=== PATIENT | female | born 1950 | race Caucasian/White ===

== ENCOUNTER 2024-08-09 21:10 | Inpatient (IN) | payer MEDICARE ==
[2024-08-09 21:49] VITALS: BMI 21.2
[2024-08-09] MEDS ORDERED: Acetaminophen/Codeine 30-300mg Tablet PO PRN (22:23)
[2024-08-09] MEDS ORDERED: Acetaminophen 325 MG TAB PO PRN (22:23)
[2024-08-09] MEDS: OLANZapine ODT 5 MG TAB PO SCH (23:23)
[2024-08-09] MEDS: Pantoprazole 40 MG DR.TAB PO SCH (23:23)
[2024-08-09] MEDS: Primidone 50 MG TAB PO SCH ×2 (23:24→23:31)
[2024-08-09] MEDS: busPIRone HCl 5 MG TAB PO SCH (23:24)
[2024-08-09] MEDS: Gabapentin 300 MG CAP PO SCH (23:24)
[2024-08-09] MEDS: traMADol HCl 50 MG TAB PO PRN (23:28)
[2024-08-10] MEDS ORDERED: Acetaminophen 325 MG TAB PO PRN (06:55)
[2024-08-10] MEDS ORDERED: Acetaminophen/Codeine 30-300mg Tablet PO PRN (06:55)
[2024-08-10] MEDS ORDERED: traMADol HCl 50 MG TAB PO PRN (06:55)
[2024-08-10] MEDS ORDERED: Diphenoxylate HCl/Atropine Tablet PO PRN ×2 (06:55→07:05)
[2024-08-10] MEDS: LAMOTRIGINE 300 MG PO SCH ×3 (09:00→20:55)
[2024-08-10] MEDS ORDERED: LAMOTRIGINE 300 MG PO SCH (09:00)
[2024-08-10] MEDS: Vibegron [Gemtesa] 75 MG Tablet PO SCH (09:00)
[2024-08-10] MEDS ORDERED: BUSPIRONE HCL 10 MG PO SCH (09:00)
[2024-08-10] MEDS ORDERED: Apixaban 5 MG TAB PO SCH (09:00)
[2024-08-10] MEDS ORDERED: LEVOMILNACIPRAN HCL 80 MG PO SCH (09:00)
[2024-08-10] MEDS ORDERED: VIBEGRON 75 MG PO SCH (09:00)
[2024-08-10] MEDS ORDERED: DEUTETRABENAZINE 24 MG PO SCH (09:00)
[2024-08-10] MEDS: LEVOMILNACIPRAN HCL 80 MG PO SCH (09:00)
[2024-08-10] MEDS ORDERED: Lidocaine 4% Patch TD SCH (09:00)
[2024-08-10] MEDS ORDERED: Non-Formulary Item 1 EACH (Omeprazole [Omeprazole] 20 MG Tablet.Dr) PO SCH (09:00)
[2024-08-10] MEDS: Lidocaine 4% Patch TD SCH (10:37)
[2024-08-10] MEDS: Apixaban 5 MG TAB PO SCH (10:37)
[2024-08-10] MEDS: Pantoprazole 40 MG DR.TAB PO SCH ×2 (10:38→10:40)
[2024-08-10] MEDS: Gabapentin 300 MG CAP PO SCH ×2 (10:38→10:39)
[2024-08-10] MEDS: Naproxen 500 MG TAB PO SCH (10:38)
[2024-08-10] MEDS: busPIRone HCl 5 MG TAB PO SCH ×2 (10:38→10:39)
[2024-08-10] MEDS: Metoprolol Succinate XL 25 MG ER.TAB PO SCH (10:51)
[2024-08-10] MEDS: HYDROcodone/Acetaminophen 5/325 mg Tablet PO PRN (12:27)
[2024-08-10] MEDS: LAMOTRIGINE 25 MG PO SCH ×2 (18:00→20:55)
[2024-08-10] MEDS: LAMOTRIGINE 50 MG PO SCH ×2 (18:00→20:55)
[2024-08-10] MEDS: DEUTETRABENAZINE 24 MG PO SCH ×2 (18:16)
[2024-08-10] MEDS: Primidone 50 MG TAB PO SCH (20:50)
[2024-08-10] MEDS: OLANZapine ODT 5 MG TAB PO SCH (20:50)
[2024-08-10] MEDS: Famotidine 20 MG TAB PO SCH (20:51)
[2024-08-10] MEDS: Senokot S 8.6-50 MG TAB PO SCH (20:55)
[2024-08-10] MEDS: Transdermal Patch Removal TOP SCH (20:56)
[2024-08-10] MEDS ORDERED: Non-Formulary Item 1 EACH (Famotidine [Famotidine] 40 MG Tablet) PO SCH (21:00)
[2024-08-10] MEDS ORDERED: Primidone 50 MG TAB PO SCH ×2 (21:00)
[2024-08-10] MEDS ORDERED: OLANZapine ODT 5 MG TAB PO SCH (21:00)
[2024-08-10] MEDS ORDERED: OLANZAPINE 5 MG PO SCH (21:00)
[2024-08-11] MEDS: Primidone 50 MG TAB PO SCH (07:38)
[2024-08-11] MEDS: LEVOMILNACIPRAN HCL 40 MG PO SCH (08:56)
[2024-08-11] MEDS: LEVOMILNACIPRAN HCL 80 MG PO SCH (08:56)
[2024-08-11] MEDS ORDERED: LAMOTRIGINE 50 MG PO SCH (09:00)
[2024-08-11] MEDS ORDERED: LAMOTRIGINE 300 MG PO SCH (09:00)
[2024-08-12 12:59] VITALS: BMI 21.2
[2024-08-13] MEDS: DEUTETRABENAZINE 24 MG PO SCH (18:00)
[2024-08-20 05:17] LABS: #Basophils 0.1 thou/uL (0.0-0.2); #Eosinophils 0.3 thou/uL (0.0-0.7); #Lymphocytes 2.4 thou/uL (1.20-3.40); #Monocytes 0.6 thou/uL (0.11-0.59); #Neutrophils 2.7 thou/uL (1.40-6.50); %Basophils 1.5 % (0.0-1.0); %Eosinophils 4.7 % (0.0-10.0); %Lymphocytes 39.6 % (21.0-51.0); %Monocytes 9.8 % (0.0-10.0); %Neutrophils 44.4 % (42.0-75.0); Hematocrit 34.1 % (36.0-47.0); Hemoglobin 11.2 g/dL (12.0-16.0); Mean Corpuscular HGB CONC 32.8 g/dL (32.0-36.0); Mean Corpuscular Hemoglobin 30.5 pg (27.0-31.0); Mean Corpuscular Volume 92.9 fl (78.0-98.0); Mean Platelet Volume 5.4 fL (7.4-10.4); Platelet Count 254 10x3/uL (130-400); RBC Distribution Width 12.1 % (11.5-14.5); Red Blood Cell (RBC) Count 3.67 mill/uL (4.20-5.40); White Blood Cell (WBC) Count 6.1 10x3/uL (4.8-10.8)
[2024-08-20 05:21] LABS: Anion Gap 13 mmol/L (10-20); BUN (Urea Nitrogen) 23 mg/dL (9.8-20.1); Calc. Creatinine Clearance 60 mL/min (70-130); Calcium 8.9 mg/dL (7.8-10.44); Carbon Dioxide 25 mmol/L (23-31); Chloride 107 mmol/L (98-107); Estimated GFR 90; Glucose 89 mg/dL (83-110); Potassium 4.3 mmol/L (3.5-5.1); Sodium 141 mmol/L (136-145)
[2024-08-27] MEDS: Lidocaine 4% Patch TD SCH (09:52)
[2024-08-27] MEDS: Transdermal Patch Removal TOP SCH (21:10)
[2024-08-29 05:14] LABS: Hematocrit 32.6 % (36.0-47.0); Hemoglobin 11.1 g/dL (12.0-16.0); Platelet Count 220 10x3/uL (130-400)
[2024-08-29] MEDS: HYDROcodone/Acetaminophen 5/325 mg Tablet PO PRN (22:17)
[2024-08-30] MEDS: Primidone 50 MG TAB PO SCH (20:35)
[2024-09-01 17:37] LABS: ALT (SGPT) 23 U/L (8-55); AST (SGOT) 15 U/L (5-34); Albumin 3.3 g/dL (3.4-4.8); Alkaline Phosphatase 123 U/L (40-110); Anion Gap 13 mmol/L (10-20); BUN (Urea Nitrogen) 19 mg/dL (9.8-20.1); Bilirubin, Total 0.2 mg/dL (0.2-1.2); Calc. Creatinine Clearance 61 mL/min (70-130); Calcium 8.6 mg/dL (7.8-10.44); Carbon Dioxide 24 mmol/L (23-31); Chloride 106 mmol/L (98-107); Estimated GFR 91; Globulin 2.2 g/dL (2.4-3.5); Glucose 88 mg/dL (83-110); Protein, Total 5.5 g/dL (5.8-8.1); Sodium 139 mmol/L (136-145)
[2024-09-03] MEDS: Acetaminophen 325 MG TAB PO PRN (22:14)
[2024-09-04] MEDS: HYDROcodone/Acetaminophen 5/325 mg Tablet PO SCH (09:50)
[2024-09-06 06:24] VITALS: BP 153/89; TEMP 98.1
== END 2024-09-06 16:45 | disposition home health service (06) | DRG 946 ==
LOC: UNDOADMIN 21:10 → BURMED 21:10
PROVIDERS: ADMIT Family Medicine; ATTEND Family Medicine
PROC: F07Z9ZZ Gait Training/Functional Ambulation Treatment (ICD-10-PCS; principal; 2024-08-10)
DX: R53.81 Other malaise (principal); S32.10XD Unspecified fracture of sacrum, subsequent encounter for fracture with routine healing; G40.909 Epilepsy, unspecified, not intractable, without status epilepticus; I10 Essential (primary) hypertension; K21.9 Gastro-esophageal reflux disease without esophagitis; F32.A Depression, unspecified; R26.89 Other abnormalities of gait and mobility; W19.XXXA Unspecified fall, initial encounter; Z79.01 Long term (current) use of anticoagulants
CPT/HCPCS: 36415; 80048; 80053; 83880; 85014; 85018; 85025; 85049